=== PATIENT | female | born 1990 | race Hispanic/Latino ===

== ENCOUNTER 2017-09-13 09:13 | Inpatient (IN) | payer OTHER ==
[2017-09-13] VITALS (7 sets, daily range): BP systolic 102–123; BP diastolic 53–74
[~2017-09-13] VITALS: Ht 170.2 cm; Wt 64.4 kg
[~2017-09-13 09:13] MED LIST: IBUP80TA PO
[2017-09-13] MEDS ORDERED: KETOROLAC 60 MG/2 ML VIAL (J1885) As Ordered ONE (09:16)
[2017-09-13] MEDS ORDERED: dexameTHASONE 4 MG/ML 1ML VIAL (J1100) As Ordered ONE (09:16)
[2017-09-13] MEDS ORDERED: MIDAZOLAM INJ 2 MG/2 ML VIAL (J2250) As Ordered ONE (09:16)
[2017-09-13] MEDS ORDERED: fentaNYL 250 MCG/5 ML INJECTION (J3010) As Ordered ONE (09:16)
[2017-09-13] MEDS ORDERED: LIDOCAINE 2% INJ 100 MG/5 ML SDV (FOR ANES.) As Ordered ONE (09:16)
[2017-09-13] MEDS ORDERED: PROPOFOL 200 MG/20 ML VIAL As Ordered ONE (09:16)
[2017-09-13] MEDS ORDERED: ROCURONIUM BROMIDE 50 MG/5 ML VIAL/SYRINGE As Ordered ONE ×2 (09:16→11:04)
[2017-09-13] MEDS ORDERED: ONDANSETRON 4MG/2ML VIAL (J2405) As Ordered ONE (09:16)
[2017-09-13] MEDS ORDERED: BUPIVACAINE HCL 0.25% 30 ML VIAL As Ordered ONE (09:18)
[2017-09-13] MEDS ORDERED: LR 1,000 ML IV ONE (09:30)
[2017-09-13 09:53] LABS: CONTROL LINE UCG INT CTR LINE PRESENT
[2017-09-13] MEDS ORDERED: PHENYLephrine HCL 500 MCG/5 ML (100MCG/ML) SYRINGE (J2370) As Ordered ONE (10:41)
[2017-09-13] MEDS ORDERED: ePHEDrine SULFATE 25 MG/5 ML(5MG/ML) SYRINGE As Ordered ONE (10:53)
[2017-09-13] MEDS ORDERED: GLYCOPYRROLATE INJ 0.2 MG/ML 2 ML VIAL As Ordered ONE (11:21)
[2017-09-13] MEDS ORDERED: NEOSTIGMINE 10 MG/10 ML VIAL (J2710) As Ordered ONE (11:21)
[2017-09-13] MEDS ORDERED: HYDROmorphone HCL 2 MG/ML 1ML VIAL (J1170) As Ordered ONE (11:22)
[2017-09-13] MEDS ORDERED: METHYLENE BLUE 0.5% (5MG/ML) 10 ML AMP (PROVAYBLUE)(Q9968 PER 1MG) As Ordered ONE (11:54)
[2017-09-13] MEDS ORDERED: LR 1,000 ML IV SCH ×2 (13:22→13:30)
[2017-09-13] MEDS ORDERED: MORPHINE 2 MG/ML 1ML SYRINGE IV PRN (13:30)
[2017-09-13] MEDS ORDERED: PROMETHAZINE INJ 25 MG/ML VIAL (J2550) IV PRN (13:30)
[2017-09-13] MEDS ORDERED: fentaNYL 100 MCG/2 ML INJECTION (J3010) IV PRN (13:30)
[2017-09-13] MEDS ORDERED: ONDANSETRON 4MG/2ML VIAL (J2405) IV PRN ×2 (13:30)
[2017-09-13] MEDS ORDERED: PERCOCET 5MG/325MG TAB PO PRN ×2 (13:30)
[2017-09-13] MEDS ORDERED: METOCLOPRAMIDE INJ 10MG/2ML VIAL (J2765) IV PRN (13:30)
[2017-09-13] MEDS: PERCOCET 5MG/325MG TAB PO PRN ×2 (15:16→21:13)
[2017-09-13] MEDS ORDERED: KETOROLAC 30 MG/ML VIAL (J1885) IV SCH ×2 (16:00→18:00)
[2017-09-13] MEDS: DOCUSATE SODIUM 100 MG CAP PO SCH (20:05)
[2017-09-14] VITALS: BP 110/66
[2017-09-14] MEDS: KETOROLAC TROMETHAMINE 10 MG TAB PO SCH ×2 (00:02→06:12)
[2017-09-14 04:00] VITALS: BP 110/72
[2017-09-14 07:24] LABS: BASO % 0.4 % (0.0-1.0); EOS # 0.1 10^3/uL (0.0-0.50); EOS % 1.1 % (0.0-3.0); IMMATURE GRANULOCYTE % 0.5 % (0-0); LYMPH # 2.3 10^3/uL (1.5-6.5); LYMPH % 20.8 % (24.0-44.0); MEAN CORPUSCULAR HEMOGLOBIN 24.8 pg (27.0-33.0); MEAN CORPUSCULAR HGB CONC 32.7 g/dl (32.0-36.5); MEAN CORPUSCULAR VOLUME 75.7 fl (80.0-96.0); MONO # 1.1 10^3/uL (0.0-0.8); MONO % 10.3 % (0.0-5.0); NEUTROPHILS # 7.3 10^3/uL (1.8-7.7); NEUTROPHILS % 66.9 % (36.0-66.0); PLATELET COUNT, AUTOMATED 188 10^3/uL (150-450); RED CELL DISTRIBUTION WIDTH 15.9 % (11.5-14.5)
[2017-09-14 08:00] VITALS: BP 108/65
[2017-09-14] MEDS: DOCUSATE SODIUM 100 MG CAP PO SCH (08:13)
[2017-09-14] MEDS: PERCOCET 5MG/325MG TAB PO PRN (08:24)
[2017-09-14] MEDS ORDERED: COLA100C5 PO (08:43)
[2017-09-14] MEDS ORDERED: OXYC1TAB23 PO (08:43)
[2017-09-14] MEDS ORDERED: ADVI200C5 PO (08:43)
[2017-09-14 08:54] VITALS: BP 110/72
[2017-09-14] MEDS ORDERED: IBUPROFEN 800 MG TAB PO SCH (20:00)
== END 2017-09-14 11:00 | disposition home or self-care (01) | DRG 743 ==
LOC: M OR 09:13 → M PED 13:18
PROVIDERS: ADMIT Obstetrics & Gynecology; ATTEND Obstetrics & Gynecology
PROC: 0UTC8ZZ Resection of Cervix, Via Natural or Artificial Opening Endoscopic (ICD-10-PCS; 2017-09-13)
PROC: 0UT74ZZ Resection of Bilateral Fallopian Tubes, Percutaneous Endoscopic Approach (ICD-10-PCS; 2017-09-13)
PROC: 0UT9FZZ Resection of Uterus, Via Natural or Artificial Opening With Percutaneous Endoscopic Assistance (ICD-10-PCS; principal; 2017-09-13 11:00)
DX: N93.9 Abnormal uterine and vaginal bleeding, unspecified (principal)